=== PATIENT | female | born 1995 | race Caucasian/White ===

== ENCOUNTER 2025-06-06 15:34 | Emergency (ER) | payer BC ==
[2025-06-06 16:17] LABS: #Basophils 0.05 10x3/uL (0.0-0.2); #Eosinophils 0.17 10x3/uL (0.0-0.5); #Monocytes 0.57 10x3/uL (0.0-1.1); #Neutrophils 4.81 10x3/uL (1.5-8.4); %Basophils 0.6 % (0.0-2.0); %Eosinophils 2.1 % (0.0-6.0); %Lymphocytes 30.1 % (18.0-47.0); %Monocytes 7.1 % (0.0-10.0); %Neutrophils 59.7 % (40.0-75.0); Hematocrit 34.4 % (34.9-44.5); Hemoglobin 11.8 g/dL (12.0-15.5); Mean Corpuscular Hemoglobin 32.2 pg (27.0-33.0); Mean Corpuscular Volume 93.7 fL (81.6-98.3); Platelet Count 200 10x3/uL (150-450); Red Blood Cell (RBC) Count 3.67 10x6/uL (3.90-5.03); White Blood Cell (WBC) Count 8.06 10x3/uL (3.5-10.5)
[2025-06-06 16:31] LABS: ALT (SGPT) 20 U/L (Less than 34); AST (SGOT) 18 U/L (11-34); Albumin 4.1 g/dL (3.1-4.5); Alkaline Phosphatase 56 U/L (40-110); Anion Gap 10 mmol/L (10-20); BUN (Urea Nitrogen) 13 mg/dL (7.0-18.7); Bilirubin, Total 0.4 mg/dL (0.3-1.2); Calc. Creatinine Clearance 0 mL/min (70-130); Calcium 8.9 mg/dL (7.8-10.44); Carbon Dioxide 24 mmol/L (22-29); Chloride 106 mmol/L (98-107); Globulin 2.4 g/dL (2.4-3.5); Glucose 84 mg/dL (70-105); Potassium 3.9 mmol/L (3.5-5.1); Sodium 136 mmol/L (136-145)
[2025-06-06 17:24] LABS: Glucose, Urine (Dipstick) Normal (Negative); Leukocyte Negative (Negative); Protein, Urine (Dipstick) Negative (Neg-Trace); Specific Gravity, Urine 1.010 (1.005-1.030)
[2025-06-06 18:06] LABS: Bacteria/HPF 2+ HPF (None Seen); CAUTI Indications for Culture Pregnancy; Mucous/LPF 1+ LPF (<2+)
[2025-06-06 18:08] LABS: Urine Culture Reflex Yes Yes
== END 2025-06-06 18:50 ==
LOC: CSHERS 15:34
DX: O20.0 Threatened abortion (principal); Z3A.01 Less than 8 weeks gestation of pregnancy; Z98.84 Bariatric surgery status
CPT/HCPCS: 36415; 76856; 80053; 81001; 84702; 85025; 86850; 86900; 86901; 87086; 93975

== ENCOUNTER 2025-06-19 09:09 | Emergency (ER) | payer BC ==
[2025-06-19 09:38] LABS: #Basophils 0.03 10x3/uL (0.0-0.2); #Eosinophils 0.15 10x3/uL (0.0-0.5); #Monocytes 0.50 10x3/uL (0.0-1.1); #Neutrophils 4.28 10x3/uL (1.5-8.4); %Basophils 0.5 % (0.0-2.0); %Eosinophils 2.3 % (0.0-6.0); %Lymphocytes 24.4 % (18.0-47.0); %Monocytes 7.6 % (0.0-10.0); %Neutrophils 64.9 % (40.0-75.0); Hematocrit 35.6 % (34.9-44.5); Hemoglobin 12.3 g/dL (12.0-15.5); Mean Corpuscular Hemoglobin 32.2 pg (27.0-33.0); Mean Corpuscular Volume 93.2 fL (81.6-98.3); Platelet Count 188 10x3/uL (150-450); Red Blood Cell (RBC) Count 3.82 10x6/uL (3.90-5.03); White Blood Cell (WBC) Count 6.59 10x3/uL (3.5-10.5)
[2025-06-19 10:19] LABS: ALT (SGPT) 17 U/L (Less than 34); AST (SGOT) 24 U/L (11-34); Albumin 4.2 g/dL (3.1-4.5); Alkaline Phosphatase 59 U/L (40-110); Anion Gap 11 mmol/L (10-20); BUN (Urea Nitrogen) 11 mg/dL (7.0-18.7); Bilirubin, Total 0.6 mg/dL (0.3-1.2); Calc. Creatinine Clearance 0 mL/min (70-130); Calcium 9.0 mg/dL (7.8-10.44); Carbon Dioxide 21 mmol/L (22-29); Chloride 109 mmol/L (98-107); Globulin 2.7 g/dL (2.4-3.5); Glucose 84 mg/dL (70-105); Potassium 4.2 mmol/L (3.5-5.1); Sodium 137 mmol/L (136-145)
[2025-06-19] MEDS ORDERED: Methotrexate Sodium/PF 50 MG (2 mL) VIAL IM SCH ×2 (11:30→11:45)
== END 2025-06-19 12:33 | disposition home or self-care (01) ==
LOC: CSHERS 09:09
DX: O00.90 Unspecified ectopic pregnancy without intrauterine pregnancy (principal); Z3A.00 Weeks of gestation of pregnancy not specified
CPT/HCPCS: 36415; 80053; 84702; 85025; 86900; 86901; 96372; 99284; J9250

== ENCOUNTER 2025-06-25 20:56 | Emergency (ER) | payer BC ==
[2025-06-25] MEDS ORDERED: Methotrexate Sodium/PF 50 MG (2 mL) VIAL IM SCH (23:30)
== END 2025-06-25 23:40 | disposition home or self-care (01) ==
LOC: CSHERS 20:56
DX: O00.90 Unspecified ectopic pregnancy without intrauterine pregnancy (principal)
CPT/HCPCS: 36415; 76856; 84702; 96372; J9250